=== PATIENT | female | born 1980 | race Hispanic/Latino ===

== ENCOUNTER 2021-01-10 08:55 | Day surgery (SDC) | payer BC ==
[2021-01-08 14:11] LABS: BASOPHILS % (AUTO) 0.7 % (0.0-5.0); EOSINOPHILS % (AUTO) 2.7 % (0.0-8.0); HEMATOCRIT 42.2 % (36-48); MEAN CORPUSCULAR HEMOGLOBIN 31.5 pg (27.0-33.0); MEAN CORPUSCULAR HGB CONC 33.4 g/dL (32.0-36.0); MEAN CORPUSCULAR VOLUME 94.4 fL (79-99); MONOCYTES % (AUTO) 5.6 % (3.0-13.0); NEUTROPHILS % (AUTO) 55.8 % (40.0-77.0); PLATELET COUNT (AUTO) 307 K/uL (130-400); RED BLOOD CELL COUNT(AUTO) 4.47 MIL/uL (4.00-5.50); RED CELL DISTRIBUTION WIDTH 12.6 % (11.0-15.5)
[2021-01-10] VITALS (17 sets, daily range): BP systolic 107–124; BP diastolic 68–82
[~2021-01-10] VITALS: Ht 167.6 cm; Wt 79.1 kg
[~2021-01-10 08:55] MED LIST: CALDOLOR 800MG+NS 250ML 250 ML IV PRN; CEFAZOLIN SODIUM 1 GM VIAL IVP ONE; LACTATED RINGERS 1000ML 1,000 ML IV SCH; MILK1TAB PO; [UNRECOGNIZED DRUG - OTHER] PO
[2021-01-10] MEDS ORDERED: PROPOFOL 10 MG/ML 20ML VIAL IV ONE (09:16)
[2021-01-10] MEDS ORDERED: LIDOCAINE PF 100MG/5ML (2%) SYRINGE 5ML ONE (09:16)
[2021-01-10] MEDS ORDERED: MIDAZOLAM HCL 1 MG/ML 2ML VIAL ONE (09:16)
[2021-01-10] MEDS ORDERED: CEFAZOLIN SODIUM 1 GM VIAL ONE (09:42)
[2021-01-10] MEDS ORDERED: IBUP-2077 PO (10:09)
[2021-01-10] MEDS ORDERED: HYDR-4060 PO (10:09)
[2021-01-10] MEDS ORDERED: ROCURONIUM 10MG/1ML SYR 10 MG/ML ML ONE (10:38)
[2021-01-10] MEDS ORDERED: SUCCINYLCHOLINE 200MG/10ML SYR ONE (10:38)
[2021-01-10] MEDS ORDERED: FENTANYL CITRATE PF 50 MCG/1 ML 2ML VIAL ONE ×2 (10:39→11:19)
[2021-01-10] MEDS ORDERED: ONDANSETRON 4MG INJ ONE (11:20)
[2021-01-10] MEDS ORDERED: MEPERIDINE-PF 25 MG/ML SYG ONE (11:48)
== END 2021-01-10 12:50 | disposition home or self-care (01) ==
LOC: DAH 08:55
PROVIDERS: ATTEND Obstetrics & Gynecology
DX: N92.0 Excessive and frequent menstruation with regular cycle (principal); Z20.822 Contact with and (suspected) exposure to COVID-19; N81.4 Uterovaginal prolapse, unspecified; K21.9 Gastro-esophageal reflux disease without esophagitis; E66.9 Obesity, unspecified; Z98.891 History of uterine scar from previous surgery; Z90.49 Acquired absence of other specified parts of digestive tract; Z98.890 Other specified postprocedural states
CPT/HCPCS: 36415 ×2; 58563; 84703; 85025; 86850; 86900; 86901; 87635; A4215; A4221; A4222; A4223; A4351; A4663; A4930; A6260; C9803; J0330; J0690; J1741; J2001; J2175; J2250; J2405; J2704; J3010 ×2; J7030 ×2; J7120